=== PATIENT | male | born 1940 | race Caucasian/White ===

== ENCOUNTER 2019-02-01 06:00 | Outpatient (RCR) | payer OTHER, SELFPAY | END 2019-03-03 00:01 | LOC: MPT 06:00 | PROVIDERS: Family Provider Internal Medicine; Visit Provider Internal Medicine | DX: M54.5 Low back pain (principal) | CPT/HCPCS: 97110 ×4; 97140 ×3; 97116; 97530 ==

== ENCOUNTER 2019-03-04 06:00 | Outpatient (RCR) | payer OTHER, SELFPAY | END 2019-04-03 23:59 | disposition home or self-care (01) | LOC: MPO 06:00 | PROVIDERS: Family Provider Internal Medicine; PCP Internal Medicine; Visit Provider Internal Medicine | DX: M54.5 Low back pain (principal) | CPT/HCPCS: 97110; 97116; 97140; 97530 ==

== ENCOUNTER 2019-04-06 06:00 | Outpatient (RCR) | payer OTHER, SELFPAY | END 2019-05-02 23:59 | disposition home or self-care (01) | LOC: MPO 06:00 | PROVIDERS: Family Provider Internal Medicine; PCP Internal Medicine; Visit Provider Internal Medicine | DX: M54.5 Low back pain (principal) | CPT/HCPCS: 97110; 97140; 97530 ==

== ENCOUNTER 2019-05-03 06:00 | Outpatient (RCR) | payer OTHER, SELFPAY | END 2019-06-02 23:59 | disposition home or self-care (01) | LOC: MPO 06:00 | PROVIDERS: Family Provider Internal Medicine; PCP Internal Medicine; Visit Provider Internal Medicine | DX: M54.5 Low back pain (principal) | CPT/HCPCS: 97110; 97140 ==

== ENCOUNTER 2019-09-28 15:25 | Inpatient (IN) | payer OTHER, MEDICARE, SELFPAY ==
[2019-09-28] VITALS (44 sets, daily range): BP systolic 118–210; BP diastolic 55–122; PULSE 27–99; RESP 0–31; TEMP 36.8–36.9; O2SAT 88–98; BMI 30.1
--- NOTE | 2019-09-28 15:26 | XRR_ITS ---
PROCEDURE INFORMATION: Exam: XR Chest, 1 View Exam date and time: 09/28/2019 4:11 PM Age: 79 years old Clinical indication: Dyspnea TECHNIQUE: Imaging protocol: XR of the chest Views: 1 view. COMPARISON: No relevant prior studies available. FINDINGS: Lungs: No CHF. No consolidation. Pleural space: Unremarkable. No pleural effusion. No pneumothorax. Heart/Mediastinum: Unremarkable. No cardiomegaly. Vasculature: Tortuosity of the thoracic aorta. Bones/joints: No acute findings. Other findings: Minimally limited by overlying artifact. XR/XR chest 1V portable [id number] IMPRESSION: No acute findings.
--- NOTE | 2019-09-28 15:27 | ECG_ITS ---
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 Measurements Intervals [place] Rate: 28 P: [place]: -1 QRS: 263 QRSD: 165 T: 37 QT: 663 QTc: 453 Interpretive Statements Sinus rhythm with A-V dissociation, complete heart block, third-degree heart block, intraventricular conduction delay Electronically Signed On 09-29-2019 20:41:25 CDT by Bethel Park M.D. [id number]
--- NOTE | 2019-09-28 15:30 | ED_ITS ---
HPI - General Adult General: Chief complaint: Arrhythmia/Palpitations Stated complaint: Bradycardia Time Seen by Provider: 09/28/19 15:26 Source: patient and EMS Mode of arrival: EMS Limitations: no limitations History of Present Illness: HPI narrative: Mr. Harris is a nice 79-year-old male who comes in by EMS with report of bradycardia. [facility] was [facility] from the [place] but they noticed him to be bradycardic. Patient denies any chest pain, shortness of breath, lightheadedness, dizziness or fatigue. Patient does state that he gets short of breath when he ambulates at home. EMS notes a heart rate in the 20s and 30s but the patient has a stable blood pressure. The patient is alert, oriented and talking and has no complaints or concerns at this time. Associated symptoms: Reports dyspnea; Deny chest pain, headache(s), nausea, rash, palpitations, syncope or vomiting Review of Systems Const: Denies: fever(s) Eyes: Denies: change in vision ENMT: Denies: throat pain Card: Denies: chest pain, palpitations, syncope, pre-syncope or dyspnea on exertion Resp: Reports: dyspnea; Denies: productive cough or non-productive cough GI: Denies: abdominal pain, nausea, vomiting or diarrhea : Denies: flank pain, dysuria, urinary frequency or urinary urgency Musc: Denies: neck pain, back pain or extremity pain Skin/Breast: Denies: rash or pruritus Neuro: Denies: headache(s), numbness in extremities, weakness in extremities or dizziness Hemal/Lymph: Denies: easy bruising or easy bleeding All/Imm: Denies: urticaria COUNTS INCLUDE 234 BEDS AT THE [facility] ED PFSH: Medical History Hyperlipidemia Hypertension Physical Exam Const: COMMON NORMALS: no acute distress, patient oriented x3, no limitations, healthy appearing and well nourished GENERAL APPEARANCE: cooperative, well kempt and well developed HENMT: COMMON NORMALS: normocephalic, atraumatic, external ears normal, EAC's normal and Normal external nose present HEAD & SCALP: normal to inspection, normocephalic and atraumatic FACE & SINUS: normal facial exam and face symmetric NOSE: Normal external nose present and Normal nares present EXTERNAL EAR: Yes external ears normal EXTERNAL AUDITORY CANAL: EAC's normal MOUTH: Normal oral and palatal mucosa present, lip normal and tongue normal Eye: COMMON NORMALS: Equal, round and reactive pupils present and conjunctivae normal GENERAL EYE: appearance normal, both eyes and all related structures ALIGNMENT: Yes alignment normal PERIORBITAL: periorbital findings normal EYELID: eyelids normal CONJUNCTIVA: Yes conjunctivae normal SCLERA: sclerae normal PUPIL: Yes Equal, round and reactive pupils present Neck/C-Spine: COMMON NORMALS: full ROM, no lymphadenopathy, supple, no meningeal signs and no JVD GENERAL: Yes normal visual inspection and Yes trachea midline Chest: COMMONS NORMALS: normal inspection of the chest and normal palpation of entire chest wall Resp: COMMON NORMALS: normal respiratory effort, No retractions and No use of accessory muscles EFFORT & INSPECTION: Yes able to speak in complete sentences and Yes symmetric chest movement AUSCULTATION: no crackles, no rales, no rhonchi and no wheezes Cardio: COMMON NORMALS: no JVD, regular rhythm, S1 normal heart sound present and S2 normal heart sound present RATE: bradycardic RHYTHM: regular rhythm HEART SOUNDS: S1 normal heart sound present, S2 normal heart sound present, no click, no gallops, no murmurs, no rubs and abnormal split S2 GI: COMMON NORMALS: Soft to palpation and No hepatosplenomegaly present PALPATION: Yes Soft to palpation, No Tenderness to palpation present (GI), No Guarding due to palpation present (GI), No Rigid due to palpation, Yes No hepatosplenomegaly present, No Hernia present, No Palpable mass present and No Pulsatile mass present : COMMON NORMALS: Yes no CVA tenderness BLADDER/KIDNEY EXAM: Yes no CVA tenderness Back/Pelvis: COMMON NORMALS: no CVA tenderness, thoracic and lumbar spine normal to inspection, no thoracic nor lumbar tenderness and thoraco-lumbar ROM normal Extremity: COMMON NORMALS: normal to inspection, full ROM, capillary refill normal, no joint enlargement, no clubbing, cyanosis or edema and no calf tenderness Neuro: COMMON NORMALS: patient oriented x3, CN's II-XII intact bilaterally, moves all extremities, no focal motor deficits and no sensory deficits noted MENINGEAL SIGNS: Yes no meningeal signs SPEECH: speech normal Psych: COMMON NORMALS: mental status grossly normal, Normal thought process present, cooperative, normal affect, speech normal and activity/motor behavior normal APPEARANCE: Yes well kempt SPEECH: Yes normal speech THOUGHT PROCESS: Normal thought process present Skin: COMMON NORMALS: no rashes or lesions noted, turgor normal, no jaundice, no petechiae and no mottling GENERAL SKIN EXAM: no rashes or lesions noted and turgor normal Course ED course: 1544 -Case reviewed with Dr. Peres, he states he would like the patient's potassium but if normal he will take to the [facility] for temporary pacemaker. 1430 -[facility] here to take patient. Patient's vital signs still unchanged. Heart rate in the 20s to 30s with a stable blood pressure. The patient is mentating, talking has no chest pain or shortness of breath. Vital Signs: Vital signs: Vital Signs Temperature 98.4 F 09/28/19 15:26 Pulse Rate 29 L 09/28/19 16:50 Respiratory Rate 10 L 09/28/19 16:50 Blood Pressure 160/78 09/28/19 16:52 Pulse Oximetry 95 09/28/19 16:50 MDM - General Adult MDM Narrative: Medical decision making narrative: The case was reviewed with Dr. Peres he is here at this time take patient to [facility] the patient continues to be hemodynamically stable except for his bradycardia but his blood pressure is good and he is mentating without any dyspnea or discomfort. Lab Data: Attestation: I reviewed the patient's lab results. Labs: Lab Results 09/28/19 09/28/19 09/28/19 Range/Units 15:30 15:30 15:30 WBC 9.3 (4.0-10.0) 10^3/ uL RBC 5.54 H (4.1-5.3) 10^6/u L Hgb 16.4 (11.7-16.6) g/dL Hct 50.7 (42.0-52.0) % MCV 91.5 (80-94) fL MCH 29.6 (28.0-34.0) pg MCHC 32.3 (30.0-36.0) g/dL RDW 12.6 (12.1-15.1) % Plt Count 242 (130-400) 10^3/c mm MPV 11.6 H (7.4-10.4) fL Neut % (Auto) 64.0 % Lymph % (Auto) 26.0 % [place] % (Auto) 7.9 % Eos % (Auto) 1.3 % Baso % (Auto) 0.6 % Neut # (Auto) 5.94 (1.8-7.7) 10^3/u L Lymph # (Auto) 2.4 (0.8-4.8) 10^3/u L [place] # (Auto) 0.7 (0.2-0.9) 10^3/u L Eos # (Auto) 0.1 (0.0-0.8) 10^3/u L Baso # (Auto) 0.1 (0.0-0.1) 10^3/u L Nucleated RBC % (a uto) 0 % Nucleated RBCs # 0.0 /100WBC PT (10.5-13.3) SECO NDS INR (0.8-1.2) APTT (23.9-36.7) SECO NDS Sodium 139 (136-145) mmol/L Potassium 4.1 (3.5-5.1) mmol/L Chloride 105 (98-107) mmol/L Carbon Dioxide 20 L (22-29) mmol/L Anion Gap 18.1 (5-19) BUN 13 (8-23) mg/dL Creatinine 0.9 (0.7-1.2) mg/dL GFR Calculation Not Reportable Glucose 115 (65-115) mg/dL Calculated Osmolal ity 285 (285-295) mOsm/k g Calcium 9.9 (8.5-10.5) mg/dL Magnesium 2.1 (1.7-2.3) mg/dL Total Bilirubin 0.9 (0.15-1.2) mg/dL AST 18 (0-40) U/L ALT 10 (0-41) U/L Alkaline Phosphata se 57 (40-130) IU/L Creatine Kinase 59 (39-308) U/L Troponin T Baselin e 34 H (0-15) ng/L Total Protein 7.9 (6.6-8.7) g/dL Albumin 4.6 (3.5-5.2) g/dL Globulin 3.3 (1.3-4.6) g/dL TSH 4.35 H (0.27-4.20) uIU/ mL Free T4 1.30 (0.82-1.77) ng/d L Amorphous Sediment 09/28/19 09/28/19 Range/Units 15:30 16:35 WBC (4.0-10.0) 10^3/ uL RBC (4.1-5.3) 10^6/u L Hgb (11.7-16.6) g/dL Hct (42.0-52.0) % MCV (80-94) fL MCH (28.0-34.0) pg MCHC (30.0-36.0) g/dL RDW (12.1-15.1) % Plt Count (130-400) 10^3/c mm MPV (7.4-10.4) fL Neut % (Auto) % Lymph % (Auto) % [place] % (Auto) % Eos % (Auto) % Baso % (Auto) % Neut # (Auto) (1.8-7.7) 10^3/u L Lymph # (Auto) (0.8-4.8) 10^3/u L [place] # (Auto) (0.2-0.9) 10^3/u L Eos # (Auto) (0.0-0.8) 10^3/u L Baso # (Auto) (0.0-0.1) 10^3/u L Nucleated RBC % (a uto) % Nucleated RBCs # /100WBC PT 13.40 H (10.5-13.3) SECO NDS INR 0.99 (0.8-1.2) APTT 29.9 (23.9-36.7) SECO NDS Sodium (136-145) mmol/L Potassium (3.5-5.1) mmol/L Chloride (98-107) mmol/L Carbon Dioxide (22-29) mmol/L Anion Gap (5-19) BUN (8-23) mg/dL Creatinine (0.7-1.2) mg/dL GFR Calculation Glucose (65-115) mg/dL Calculated Osmolal ity (285-295) mOsm/k g Calcium (8.5-10.5) mg/dL Magnesium (1.7-2.3) mg/dL Total Bilirubin (0.15-1.2) mg/dL AST (0-40) U/L ALT (0-41) U/L Alkaline Phosphata se (40-130) IU/L Creatine Kinase (39-308) U/L Troponin T Baselin e (0-15) ng/L Total Protein (6.6-8.7) g/dL Albumin (3.5-5.2) g/dL Globulin (1.3-4.6) g/dL TSH (0.27-4.20) uIU/ mL Free T4 (0.82-1.77) ng/d L Amorphous Sediment Not Reportable Imaging Data^: CXR: My impression: No acute cardiopulmonary findings. EKG Data^: EKG 1: Attestation: I personally reviewed and interpreted this EKG as follows: EKG interpretation date: 09/28/19 EKG interpretation time: 15:54 Interpretation: 3 degree AV block with a ventricular 28 beats a minute. Computer generated interpretation: Chest X-Ray 09/28/19 15:26 IMPRESSION: No acute findings. Discharge Plan Discharge Patient Disposition: Admitted As Inpatient Clinical Impression: Third degree AV block Condition: Stable Coding Level of Care Code ED Legal Activity Adjudicator for Chg Fwd Exam Comprehensive
[2019-09-28 15:47] LABS: Basophils # 0.1 10^3/uL (0.0-0.1); Basophils % 0.6 %; Eosinophils # 0.1 10^3/uL (0.0-0.8); Eosinophils % 1.3 %; Hematocrit 50.7 % (42.0-52.0); Hemoglobin 16.4 g/dL (11.7-16.6); Lymphocytes # 2.4 10^3/uL (0.8-4.8); Mean Corpuscular HGB Conc 32.3 g/dL (30.0-36.0); Mean Corpuscular Hemoglobin 29.6 pg (28.0-34.0); Mean Corpuscular Volume 91.5 fL (80-94); Mean Platelet Volume 11.6 fL (7.4-10.4); Monocytes # 0.7 10^3/uL (0.2-0.9); Monocytes % 7.9 %; Neutrophils # 5.94 10^3/uL (1.8-7.7); Nucleated Red Blood Cells % 0 %; Platelet Count 242 10^3/cmm (130-400); Red Blood Count 5.54 10^6/uL (4.1-5.3); Red Cell Distribution Width 12.6 % (12.1-15.1); White Blood Count 9.3 10^3/uL (4.0-10.0)
[2019-09-28 16:05] LABS: Troponin(5th) Baseline 34 ng/L (0-15)
[2019-09-28 16:15] LABS: Alanine Aminotransferase 10 U/L (0-41); Albumin Level 4.6 g/dL (3.5-5.2); Alkaline Phosphatase 57 IU/L (40-130); Anion Gap 18.1 (5-19); Aspartate Amino Transferase 18 U/L (0-40); Blood Urea Nitrogen 13 mg/dL (8-23); Calcium 9.9 mg/dL (8.5-10.5); Carbon Dioxide 20 mmol/L (22-29); Chloride 105 mmol/L (98-107); Creatine Phosphokinase 59 U/L (39-308); Globulin 3.3 g/dL (1.3-4.6); Glucose 115 mg/dL (65-115); Magnesium 2.1 mg/dL (1.7-2.3); Osmolality Calculated 285 mOsm/kg (285-295); Potassium 4.1 mmol/L (3.5-5.1); Sodium 139 mmol/L (136-145); Thyroid Stimulating Hormone 4.35 uIU/mL (0.27-4.20); Total Bilirubin 0.9 mg/dL (0.15-1.2); Total Protein 7.9 g/dL (6.6-8.7)
[2019-09-28 16:22] LABS: INR 0.99 (0.8-1.2)
[2019-09-28 16:23] LABS: Partial Thromboplastin Time 29.9 SECONDS (23.9-36.7)
[2019-09-28 16:58] LABS: Bilirubin Urine Neg (NEGATIVE); Blood Urine Neg (Negative); Glucose Urine UA Norm (Normal); Ketones Urine Negative (Negative); Leukocyte Esterase Urine Negative (Negative); Nitrate Urine Negative (Negative); Protein Urine Neg (Negative); Specific Gravity, Urine 1.025 (1.005-1.030); Urine Appearance Clear (CLEAR); Urine Color Yellow (Yellow); Urobilinogen Urine Norm (Negative); pH Urine 5 (5-7)
[2019-09-28 16:59] LABS: Add Urine Culture? No; Bacteria Urine TRACE; Hyaline Casts Urine 0-4; Squamous Epithelial Cell Urine 0-4 (0-5)
--- NOTE | 2019-09-28 17:04 | W.PM.OPSUD ---
Surgery/Procedure H&P Update DATE OF PROCEDURE: September 28, 2019 DATE H&P PERFORMED: 09/28/19 H&P UPDATE INFORMATION: I have examined patient prior to procedure PREOP DIAGNOSIS: Complete heart block/third-degree PLANNED PROCEDURE: Temporary pacemaker PATIENT REASSESSED PRIOR TO SEDATION, WITH NO CHANGE NOTED: Yes PHYSICAL EXAM: alert, oriented x 3, clear to auscultation bilaterally and regular rate & rhythm AIRWAY EVAL/ANESTHESIA PLAN: ASA II
--- NOTE | 2019-09-28 17:05 | P.HP_ITS ---
Providers/Chief Complaint Primary Care Provider: Oscar Miramontes Chief Complaint: Bradycardia History of Present Illness Wilmer Harris is a 79 year old male past medical history significant for hyperlipidemia hypertension for the past couple of weeks but feeling fatigue very short of breath with lack of energy and had occasion presyncopal did not seek any attention. Today his son-in-law brought him to the emergency room as he was not able to move around, he was noted to be in complete heart block by EKG and heart rate of 30s. His blood pressure was 200 x 100 which later improved to 180 x 90. BMP did not show any significant derangement of the electrolytes he denies being on henry blockers. He denies history of chest pain. He denies history of tick bite joint problem or prior history of heart problem. Since his heart rate continues to be in persistent 20s to 30s we will take him to the [facility] for temporary pacemaker Medications/Allergies Home Medications Medication Instructions Recorded Confirmed Last Taken Type aspirin 325 mg PO DAILY 09/28/19 09/28/19 09/27/19 History lisinopril 20 mg PO BID 09/28/19 09/28/19 09/28/19 History pravastatin 40 mg PO QPM 09/28/19 09/28/19 09/27/19 History Allergies Allergy/AdvReac Type Severity Reaction Status Date / Time diphenhydramine Allergy ALGY-Swell Verified 09/28/19 15:52 Lip/Tongue/Throat PFSH Acute PFSH: Medical History Hyperlipidemia Hypertension Vitals/I&O/Wt Last Vital Signs Temp 98.4 F 09/28/19 15:26 Pulse 29 L 09/28/19 16:50 Resp 10 L 09/28/19 16:50 BP 160/78 09/28/19 16:52 Pulse Ox 95 09/28/19 16:50 Weight last 48 hrs Weight 222 lb Physical Exam Narrative: EXAM NARRATIVE: GENERAL: Patient is alert, awake and oriented x3. NECK: No jugular vein distension. HEENT: No cyanosis. No icterus. No pallor. HEART: Regularly irregular S1 and S2. No murmur, rub or gallop. LUNGS: Clear to auscultate bilaterally. ABDOMEN: Soft, nontender and nondistended. Positive bowel sounds. No guarding, rebound or tenderness. CENTRAL NERVOUS SYSTEM: Grossly nonfocal. EXTREMITIES: Lower extremities without edema bilaterally. Data : 09/28/19 15:30 09/28/19 15:30 A&P Assessment and plan (1) Third degree AV block: Patient presented with complete third-degree heart block with A-V dissociation. His heart rate in 20s he is mentating fine and stable hemodynami linda I will proceed with urgent temporary pacemaker placement. He will be ruled out for any reversible cause overnight. Most likely he will be requiring permanent pacemaker placement. I will consult Dr. Bowden from CT surgery tomorrow. Patient has been explained all risk benefit and alternative for the procedure and he would like to proceed with it. Status: Acute (2) Hyperlipidemia: Continue statin Status: Acute Qualifiers: Hyperlipidemia type: unspecified Qualified Code(s): E78.5 - Hyperlipidemia, unspecified (3) Hypertension: Moderately elevated I will optimize his medicine. Status: Acute Qualifiers: Hypertension type: essential hypertension Qualified Code(s): I10 - Essential (primary) hypertension Attestations Medical Necessity Statement*: I am expecting his stay to cross more than 2 midnights Coding Level of Care Code New Pt Acute Women'S Studies Lecturer for Chg Fwd Patient Type New History Detailed Exam Expanded Problem Focused Medical Decision Making Moderate Complexity Diagnoses Third degree AV block I44.2 Hyperlipidemia E78.5 Hyperlipidemia type: unspecified Hypertension I10 Hypertension type: essential hypertension
--- NOTE | 2019-09-28 17:27 | ECG_ITS ---
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 Measurements Intervals [place] Rate: 52 P: [place]: -1 QRS: 33 QRSD: 170 T: 245 QT: 472 QTc: 441 Interpretive Statements ELECTRONIC VENTRICULAR PACEMAKER ABNORMAL RHYTHM ECG Compared to ECG 09/28/2019 15:54:35 Idioventricular rhythm no longer present Prolonged QT interval no longer present Electronically Signed On 09-28-2019 21:36:18 CDT by Clover Borrego M.D. [id number]
--- NOTE | 2019-09-28 18:17 | P.CONIM_ITS ---
Providers/Reason For Consult Consulting Physican/Specialty*: Dr. Bowden, cardiothoracic surgery Reason for Consult*: Third-degree heart block, will require permanent pacemaker implantation Requesting Physcian: Dr. Park Attending Physician: Bethel Park MD Primary Care Provider: Oscar Miramontes History of Present Illness History of Present Illness Wilmer Harris is a 79 year old male who is just arrived to the ICU having a temporary pacemaker placed through the neck by Dr. Park after initially presenting in third-degree heart block. He gives a history of increasing fatigue and shortness of breath for the past couple of weeks. Upon arrival to the ER, he was found to be in third-degree block with a heart rate of mid 30s. No precipitating factors could be elucidated by Dr. Park or the ER staff. Initial serum chemistries were unremarkable. He does have a history of hypertension and was hypertensive upon arrival. Dr. Park expeditiously placed a temporary pacemaker through the neck with excellent capture. Currently, he is resting comfortably in the ICU without discomfort. No shortness of breath or chest pain. Dr. Park is requested that a permanent pacemaker be implanted. Chest x-ray from our today was clear without cardiomegaly, infiltrate, or effusion. Review of Systems Const: Denies: fever(s), chills, change in appetite, change in weight, fatigue or night sweats Eyes: Denies: change in vision or blurry vision ENMT: Denies: odynophagia or hoarseness Card: Reports: palpitations, pre-syncope and dyspnea on exertion; Denies: chest pain Resp: Reports: dyspnea; Denies: hemoptysis GI: Denies: abdominal pain, nausea, vomiting, dysphagia, heartburn or change in bowel habits : Denies: difficulty urinating, dysuria, urinary frequency, urinary urgency or urinary hesitancy Musc: Denies: extremity pain or extremity swelling Skin/Breast: Denies: rash Neuro: Denies: headache(s), numbness in extremities, weakness in extremities or sensory changes Psych: Denies: anxiety, depression or change in appetite Endo: Denies: polyuria, polydipsia or cold intolerance Hemal/Lymph: Denies: easy bruising, easy bleeding, petechiae or enlarged lymph nodes Meds/Allergies Home Medications and Allergies Home Medications Medication Instructions Recorded Confirmed Last Taken Type aspirin 325 mg PO DAILY 09/28/19 09/28/19 09/27/19 History lisinopril 20 mg PO BID 09/28/19 09/28/19 09/28/19 History pravastatin 40 mg PO QPM 09/28/19 09/28/19 09/27/19 History Allergies Allergy/AdvReac Type Severity Reaction Status Date / Time diphenhydramine Allergy ALGY-Swell Verified 09/28/19 15:52 Lip/Tongue/Throat Current Medications Current Medications Generic Name Dose Route Start Last Admin Trade Name Freq PRN Reason Stop Dose Admin Sodium Chloride 1,000 mls @ 100 mls/hr 09/28/19 15:30 09/28/19 17:03 Sodium Chloride 0.9% IV Not Given .Q10H AUBRIE PFSH Acute PFSH: Medical History Hyperlipidemia Hypertension Vitals/I&O/Wt Last Vital Signs Temp 98.4 F 09/28/19 15:26 Pulse 54 L 09/28/19 18:15 Resp 10 L 09/28/19 16:50 BP 160/78 09/28/19 16:52 Pulse Ox 93 09/28/19 18:15 Weight last 48 hrs Weight 222 lb Physical Exam Const: COMMON NORMALS: patient oriented x3 Neck/C-Spine: GENERAL: Yes normal visual inspection and Yes trachea midline OTHER: There is a large bandage on the right neck and right anterior chest wall which is securing the temporary pacemaker. Chest: COMMONS NORMALS: normal inspection of the chest CHEST: Yes Symmetrical chest wall rise OTHER: No crepitance Resp: COMMON NORMALS: normal respiratory effort, No retractions and clear to auscultation bilaterally EFFORT & INSPECTION: Yes able to speak in complete sentences, Yes symmetric chest movement and No tachypneic AUSCULTATION: clear to auscultation bilaterally Cardio: COMMON NORMALS: regular rate, No gallops present (Cardio), No murmurs present (Cardio) and No rub (Cardio); negative for regular rhythm (Ventricularly paced rhythm) JUGULAR VENOUS DISTENTION: no JVD PALPATION: normal PMI RATE: regular rate RHYTHM: abnormal rhythm (Ventricularly paced rhythm) Extremity: COMMON NORMALS: no clubbing, cyanosis or edema and no pedal edema Neuro: COMMON NORMALS: patient oriented x3, moves all extremities, no focal motor deficits and no sensory deficits noted GAIT: Yes Unable to assess gait A&P Assessment and plan (1) Third degree AV block: Pleasant 79-year-old gentleman presenting with third-degree heart block, now ventricularly paced with a temporary pacemaker placed by Dr. Park. Plan: I have conferred personally with Dr. Park. We will tentatively plan for dual-chamber pacemaker implantation as first case Saturday, September 29 prior to schedule other electrophysiology cases. If there is any concern as to functioning of the temporary pacemaker or other difficulties, I am available at any time to place this permanent pacemaker at an earlier time, as directed by Dr. Park. I have discussed my recommendation with Mr. Harris. He is in agreement. Details and risk of surgery were carefully and frankly discussed including potential for lead migration, major bleeding, pneumothorax requiring chest tube, need for long-term follow-up, infection requiring removal of the device or leads, and other potential diagnostic and therapeutic procedures. Status: Acute Consult Attestations Medical Necessity Statement: Third-degree heart block, currently requiring temporary pacemaker with subsequent permanent pacemaker requirement. Time Spent in Patient Care: Greater than 35 minutes Coding Level of Care Code Acute Supervisor Tower for [facility] Valerie Diagnoses Third degree AV block I44.2
[2019-09-28] MEDS: lisinopril 20 mg Tablet PO (20:17)
[2019-09-28] MEDS: atorvastatin 40 mg Tablet 20 MG PO (20:17)
--- NOTE | 2019-09-28 21:27 | ECG_ITS ---
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 Measurements Intervals [place] Rate: 80 P: [place]: -1 QRS: -22 QRSD: 218 T: 173 QT: 503 QTc: 583 Interpretive Statements ELECTRONIC VENTRICULAR PACEMAKER with isolated PVCs Compared to ECG 09/28/2019 18:04:43 No significant changes Electronically Signed On 09-29-2019 12:34:00 CDT by Clover Borrego M.D. [id number]
[2019-09-29] VITALS (29 sets, daily range): BP systolic 120–191; BP diastolic 63–166; PULSE 75–98; RESP 4–26; O2SAT 89–100
[2019-09-29] MEDS: sodium chloride 0.9% 1,000 ML 100 ML IV ×2 (03:42→13:03)
[2019-09-29 04:17] LABS: Basophils # 0.1 10^3/uL (0.0-0.1); Basophils % 0.6 %; Eosinophils # 0.2 10^3/uL (0.0-0.8); Eosinophils % 1.8 %; Hematocrit 46.8 % (42.0-52.0); Hemoglobin 15.1 g/dL (11.7-16.6); Lymphocytes % 24.1 %; Mean Corpuscular HGB Conc 32.3 g/dL (30.0-36.0); Mean Corpuscular Hemoglobin 30.1 pg (28.0-34.0); Mean Corpuscular Volume 93.4 fL (80-94); Mean Platelet Volume 11.4 fL (7.4-10.4); Monocytes # 0.8 10^3/uL (0.2-0.9); Monocytes % 9.1 %; Neutrophils # 5.41 10^3/uL (1.8-7.7); Nucleated Red Blood Cells % 0 %; Platelet Count 195 10^3/cmm (130-400); Red Blood Count 5.01 10^6/uL (4.1-5.3); Red Cell Distribution Width 12.6 % (12.1-15.1); White Blood Count 8.5 10^3/uL (4.0-10.0)
[2019-09-29 05:06] LABS: Alanine Aminotransferase 12 U/L (0-41); Alkaline Phosphatase 51 IU/L (40-130); Aspartate Amino Transferase 19 U/L (0-40); Blood Urea Nitrogen 12 mg/dL (8-23); Calcium 8.7 mg/dL (8.5-10.5); Carbon Dioxide 21 mmol/L (22-29); Chloride 106 mmol/L (98-107); Globulin 2.6 g/dL (1.3-4.6); Glucose 90 mg/dL (65-115); Osmolality Calculated 284 mOsm/kg (285-295); Sodium 139 mmol/L (136-145); Total Bilirubin 1.3 mg/dL (0.15-1.2); Total Protein 6.6 g/dL (6.6-8.7)
--- NOTE | 2019-09-29 07:13 | P.PN_ITS ---
Subjective Subjective: Interval history: Sleeping on rounds this morning. Looks like he is only requiring the temporary pacer intermittently. Nurses report no concerns overnight. Vitals/I&O/Wt Last Vital Signs Temp 98.3 F 09/28/19 19:24 Pulse 81 09/29/19 06:00 Resp 17 09/29/19 06:00 BP 130/81 09/29/19 06:00 Pulse Ox 95 09/29/19 06:00 09/28/19 09/29/19 09/29/19 22:59 06:59 14:59 Intake Total 480 / 480 Output Total 500 / 500 Balance 480 / 480 -500 / -20 Weight last 48 hrs Weight 222 lb Physical Exam Resp: COMMON NORMALS: normal respiratory effort and clear to auscultation bilaterally AUSCULTATION: clear to auscultation bilaterally Cardio: COMMON NORMALS: S1 normal heart sound present and No gallops present (Cardio) RHYTHM: abnormal rhythm HEART SOUNDS: S1 normal heart sound present Data : 09/29/19 03:50 09/29/19 03:50 A&P Assessment and plan (1) Third degree AV block: Third-degree heart block requiring temporary pacemaker placement by Dr. Park yesterday. Currently requiring the pacemaker intermittently. Plan: We tentatively scheduled for dual-chamber pacemaker implantation the morning. I discussed the rationale for this carefully with Miguel Kimberly yesterday. He is in agreement. He appears comfortable on rounds this morning. Status: Acute Attestations Medical Necessity Statement*: Third-degree AV block requiring temporary pacing Time Spent in Patient Care: less than 15 minutes Coding Level of Care Code Acute Utilization Specialist for [employer] Diagnoses Third degree AV block I44.2
[2019-09-29] MEDS: lisinopril 20 mg Tablet PO ×2 (08:20→16:59)
[2019-09-29] MEDS: aspirin 325 mg Tablet PO (08:20)
--- NOTE | 2019-09-29 11:58 | PC.NURSE ---
PACEMAKER PLACEMENT Patient is planned to go for permanent pacemaker in the morning, 09/29. Dr. Bowden is consulted and stated that he would be the first case of the day. Patient has been pacing in the 80s today. Patient denies any shortness of breath. Oxygen saturation has been 96% on 3L NC.
[2019-09-29] MEDS: mupirocin oint 22 gm 1 APPLIC NASAL (16:42)
[2019-09-29] MEDS: chlorhexidine gluconate 4% Btl 118 mL 1 APPLIC TOPICAL (16:43)
[2019-09-29] MEDS: atorvastatin 40 mg Tablet 20 MG PO (16:59)
[2019-09-29] MEDS: amlodipine 5 mg Tablet PO (17:47)
--- NOTE | 2019-09-29 18:17 | PM.PN ---
Subjective Subjective: Interval history: Status post temporary pacemaker 100% paced with heart rate of 70s. He is feeling already much better Vitals/I&O/Wt Last Vital Signs Temp 98.3 F 09/28/19 19:24 Pulse 81 09/29/19 18:00 Resp 15 09/29/19 18:00 BP 121/97 09/29/19 18:00 Pulse Ox 94 09/29/19 18:00 09/29/19 09/29/19 09/29/19 06:59 14:59 22:59 Intake Total 1535 / 1535 Output Total 500 / 500 550 / 550 850 / 1400 Balance -500 / -20 985 / 985 -850 / 135 Weight last 48 hrs Weight 222 lb Physical Exam Narrative: EXAM NARRATIVE: GENERAL: Patient is alert, awake and oriented x3. NECK: No jugular vein distension. HEENT: No cyanosis. No icterus. No pallor. HEART: Regularly irregular S1 and S2. No murmur, rub or gallop. LUNGS: Clear to auscultate bilaterally. ABDOMEN: Soft, nontender and nondistended. Positive bowel sounds. No guarding, rebound or tenderness. CENTRAL NERVOUS SYSTEM: Grossly nonfocal. EXTREMITIES: Lower extremities without edema bilaterally. 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 Bowden saw the patient in consultation at our request. Patient will be undergoing permanent pacemaker implant tomorrow morning. Until then continue to monitor in the ICU with temporary pacer. Status: Acute (2) Hypertension: Continue home medicine lisinopril. We will titrate up to keep blood pressure below 120/80 Status: Acute Qualifiers: Hypertension type: essential hypertension Qualified Code(s): I10 - Essential (primary) hypertension Attestations Medical Necessity Statement*: Require continuation hospitalization for above defined care. Coding Level of Care Code Established Pt Acute Cook Helper Juice for [facility] Fwd Patient Type Established History Expanded Problem Focused Exam Expanded Problem Focused Medical Decision Making Moderate Complexity Diagnoses Third degree AV block I44.2 Hypertension I10 Hypertension type: essential hypertension
--- NOTE | 2019-09-29 18:41 | PC.NURSE ---
SHIFT SUMMARY Patient has had uneventful shift. Patient has continued to pace in the 80s throughout the shift. 1,400 mL urine output this shift. Patient still remains on 3L NC. Dr. Park saw patient and added amlodipine 5 mg PO once daily for blood pressure, and also instructed to decrease IV fluids to KVO. Patient BP has continued to maintain 150s/70s this shift. Patient is still scheduled to go to surgery with Dr. Bowden for permanent pacemaker first thing in the morning. Patient torso was washed with first application of betasept around 1700. Patient has no complaints at this time.
[2019-09-30] VITALS (19 sets, daily range): BP systolic 96–148; BP diastolic 62–96; PULSE 71–99; RESP 13–25; O2SAT 91–98
--- NOTE | 2019-09-30 | SCC_ITS ---
Procedure Done: Dual-chamber pacemaker implantation 203.1 seconds of fluoroscopic guidance, for a cumulative dose of 75.92 mGy, was provided to Dr. Burch by the radiology department. C-arm images of the chest were saved for the patient's permanent record. DEMETRI
--- NOTE | 2019-09-30 06:28 | P.PN_ITS ---
Subjective Subjective: Interval history: Rested well last night. Sleeping on rounds. Aroused easily. Eager to proceed with pacemaker implantation. Vitals/I&O/Wt Last Vital Signs Temp 98.3 F 09/28/19 19:24 Pulse 81 09/30/19 06:00 Resp 19 H 09/30/19 06:00 BP 148/94 09/30/19 06:00 Pulse Ox 93 09/30/19 06:00 09/29/19 09/29/19 09/30/19 14:59 22:59 06:59 Intake Total 1535 / 1535 240 / 1775 Output Total 550 / 550 1000 / 1550 750 / 2300 Balance 985 / 985 -760 / 225 -750 / -525 Weight last 48 hrs Weight 222 lb Physical Exam Chest: COMMONS NORMALS: normal inspection of the chest (Temporary pacemaker still secured and in place) Resp: COMMON NORMALS: normal respiratory effort and clear to auscultation bilaterally EFFORT & INSPECTION: Yes able to speak in complete sentences AUSCULTATION: clear to auscultation bilaterally Cardio: COMMON NORMALS: regular rhythm (Occasional paced beats) RHYTHM: regular rhythm (Occasional paced beats) Extremity: COMMON NORMALS: no clubbing, cyanosis or edema Data : 09/29/19 03:50 09/29/19 03:50 A&P Assessment and plan (1) Third degree AV block: Third-degree heart block, currently requiring temporary pacemaker inter mittently. Plan: We will plan for dual-chamber pacemaker implantation this morning. Details risk procedure carefully and frankly discussed again. Mr. Harris is eager to proceed. Status: Acute Attestations Medical Necessity Statement*: Third-degree heart block requiring temporary pacemaker Time Spent in Patient Care: less than 15 minutes Coding Level of Care Code Acute Roving Department End Finder for [facility] Fwd Diagnoses Third degree AV block I44.2
--- NOTE | 2019-09-30 06:55 | ANES.PREANE2 ---
Pre-Anesthetic Assessment Pre-Anesthetic Assessment: Height/Weight: Height 1.83 m Weight 100.698 kg Temp Pulse Resp BP Pulse Ox 98.3 F 81 19 H 148/94 93 09/28/19 19:24 09/30/19 06:00 09/30/19 06:00 09/30/19 06:00 09/30/19 06:00 Preop Diagnosis: Complete heart block/third-degree Proposed Procedure: Operation Date: 09/29/19 16:30 Proposed Procedures p Temporary Pacemaker Placement(Not Applicable) - Bethel Park MD Operation Date: 09/30/19 07:00 Proposed Procedures p Pacemaker Insertion(Not Applicable) - Donal Bowden MD Social: Social History: Alcohol (occ) and No tobacco Exam: Pre-Anes Outpt Exam: alert, oriented x 3, clear to auscultation bilaterally and regular rate & rhythm Airway: Submandibular: WNL Cervical ROM: WNL MP: 2 Dentition: Other (very poor, 4 teeth on the bottom) History/ROS: No significant history except as noted Pulmonary: Pulmonary: MOLINA CV/HEM: CV/HEM: Arrythmia and HTN : : None reported Hepatic: Hepatic: None reported GI: GI: None reported Metabolic: Metabolic: Hyperlipidemia Musc/skel: Musc/skel: OA/DJD Neuropsych: Neuropsych: None reported Anesthetic Plan: ASA status: 4 Anesthesia: Anesthesia Evaluation and MAC Risk of > 500 ml blood loss (7ml/kg in children): No Meds/Allergies Current Medications: Current Medications Generic Name Dose Route Start Last Admin Trade Name Freq PRN Reason Stop Dose Admin Amlodipine Besylat e 5 mg 09/29/19 18:00 09/29/19 17:47 Norvasc PO 5 mg DAILY AUBRIE Administration Aspirin 325 mg 09/29/19 09:00 09/29/19 08:20 Aspirin PO 325 mg DAILY AUBRIE Administration Atorvastatin Calci um 20 mg 09/28/19 18:00 09/29/19 16:59 Lipitor PO 20 mg QPM AUBRIE Administration Chlorhexidine Gluc khris 1 applic 09/29/19 18:00 09/29/19 16:43 Betasept TOPICAL 1 applic BID AUBRIE Administration Sodium Chloride 1,000 mls @ 30 ml s/hr 09/28/19 15:30 09/29/19 13:03 Sodium Chloride 0.9% IV 100 mls/hr .Q24H AUBRIE Administration Lisinopril 20 mg 09/28/19 18:00 09/29/19 16:59 Prinivil PO 20 mg BID AUBRIE Administration Mupirocin 1 applic 09/29/19 09:00 09/29/19 16:42 Bactroban NASAL 1 applic BID AUBRIE Administration PFSH Anesthesia PFSH: Medical History Hyperlipidemia Hypertension Data Anesthesia CBC & Chem 7: 09/29/19 03:50 09/29/19 03:50 Other Labs: Laboratory Results - last 48 hr 09/28/19 09/28/19 09/28/19 15:30 15:30 15:30 WBC 9.3 RBC 5.54 H Hgb 16.4 Hct 50.7 MCV 91.5 MCH 29.6 MCHC 32.3 RDW 12.6 Plt Count 242 MPV 11.6 H Neut % (Auto) 64.0 Lymph % (Auto) 26.0 Randolph % (Auto) 7.9 Eos % (Auto) 1.3 Baso % (Auto) 0.6 Neut # (Auto) 5.94 Lymph # (Auto) 2.4 Randolph # (Auto) 0.7 Eos # (Auto) 0.1 Baso # (Auto) 0.1 Nucleated RBC % (auto) 0 Nucleated RBCs # 0.0 PT INR APTT Sodium 139 Potassium 4.1 Chloride 105 Carbon Dioxide 20 L Anion Gap 18.1 BUN 13 Creatinine 0.9 GFR Calculation Not Reportable Glucose 115 Calculated Osmolality 285 Calcium 9.9 Magnesium 2.1 Total Bilirubin 0.9 AST 18 ALT 10 Alkaline Phosphatase 57 Creatine Kinase 59 Troponin T Baseline 34 H Total Protein 7.9 Albumin 4.6 Globulin 3.3 TSH 4.35 H Free T4 1.30 Urine Color Urine Appearance Urine pH Ur Specific Spencer Urine Protein Urine Glucose (UA) Urine Ketones Urine Blood Urine Nitrate Urine Bilirubin Urine Urobilinogen Ur Leukocyte Esterase Urine RBC Urine WBC Ur Squamous Epith Cells Amorphous Sediment Urine Bacteria Hyaline Casts 09/28/19 09/28/19 09/29/19 15:30 16:35 03:50 WBC 8.5 RBC 5.01 Hgb 15.1 Hct 46.8 MCV 93.4 MCH 30.1 MCHC 32.3 RDW 12.6 Plt Count 195 MPV 11.4 H Neut % (Auto) 64.0 Lymph % (Auto) 24.1 Randolph % (Auto) 9.1 Eos % (Auto) 1.8 Baso % (Auto) 0.6 Neut # (Auto) 5.41 Lymph # (Auto) 2.0 Randolph # (Auto) 0.8 Eos # (Auto) 0.2 Baso # (Auto) 0.1 Nucleated RBC % (auto) 0 Nucleated RBCs # 0.0 PT 13.40 H INR 0.99 APTT 29.9 Sodium Potassium Chloride Carbon Dioxide Anion Gap BUN Creatinine GFR Calculation Glucose Calculated Osmolality Calcium Magnesium Total Bilirubin AST ALT Alkaline Phosphatase Creatine Kinase Troponin T Baseline Total Protein Albumin Globulin TSH Free T4 Urine Color Yellow Urine Appearance Clear Urine pH 5 Ur Specific Spencer 1.025 Urine Protein Neg Urine Glucose (UA) Norm Urine Ketones Negative Urine Blood Neg Urine Nitrate Negative Urine Bilirubin Neg Urine Urobilinogen Norm Ur Leukocyte Esterase Negative Urine RBC None Urine WBC None Ur Squamous Epith Cells 0-4 H Amorphous Sediment Not Reportable Urine Bacteria Trace Hyaline Casts 0-4 H 09/29/19 03:50 WBC RBC Hgb Hct MCV MCH MCHC RDW Plt Count MPV Neut % (Auto) Lymph % (Auto) Randolph % (Auto) Eos % (Auto) Baso % (Auto) Neut # (Auto) Lymph # (Auto) Randolph # (Auto) Eos # (Auto) Baso # (Auto) Nucleated RBC % (auto) Nucleated RBCs # PT INR APTT Sodium 139 Potassium 4.0 Chloride 106 Carbon Dioxide 21 L Anion Gap 16.0 BUN 12 Creatinine 0.8 GFR Calculation Not Reportable Glucose 90 Calculated Osmolality 284 L Calcium 8.7 Magnesium Total Bilirubin 1.3 H AST 19 ALT 12 Alkaline Phosphatase 51 Creatine Kinase Troponin T Baseline Total Protein 6.6 Albumin 4.0 Globulin 2.6 TSH Free T4 Urine Color Urine Appearance Urine pH Ur Specific Spencer Urine Protein Urine Glucose (UA) Urine Ketones Urine Blood Urine Nitrate Urine Bilirubin Urine Urobilinogen Ur Leukocyte Esterase Urine RBC Urine WBC Ur Squamous Epith Cells Amorphous Sediment Urine Bacteria Hyaline Casts Cardiac Studies: No Data to Display
--- NOTE | 2019-09-30 07:38 | SC_ITS ---
WS: [id number] INTRAOPERATIVE TECHNIQUE: 2 Spot fluoroscopic images for intraoperative purposes. FLUOROSCOPY TIME: 203.1 seconds CLINICAL INFORMATION: pacemaker insertion COMPARISON: None. FINDINGS: Intraoperative images for cardiac pacer placement. No visualized pneumothorax. Lungs incompletely vis ualized. SC/C-arm FL for Pacemaker IMPRESSION: Images obtained for intraoperative purposes.
[2019-09-30] MEDS: ceFAZolin 1,000 mg SDV 1000 MG IRRIGATION (07:46)
[2019-09-30] MEDS: lidocaine 1% INJ 20 mL INJECTION (07:53)
--- NOTE | 2019-09-30 09:18 | PM.OP ---
Operative Report Date of procedure: September 30, 2019 Pre-op Diagnosis: Complete heart block/third-degree Post-op diagnosis: same Post-op Findings: Same Procedure Done: Dual-chamber pacemaker implantation Implants: Medtronic atrial and ventricular pacing leads and generator Pathology: none sent Surgeon: Donal Bowden Anesthesia: MAC and Other (15 cc of 1% lidocaine infiltrated locally) Complications: None: Post procedure chest x-ray pending Condition: stable Disposition: ICU Brief History: Mr. Delaney is a 79-year-old gentleman who presented to the emergency department 2 days ago with profound bradycardia with a heart rate in the upper 20s to low 30s and was found to have complete AV heart block. He had a 2-week history of progressive shortness of breath. Temporary pacing lead was placed by Dr. Park. I was consulted for dual-chamber pacemaker implantation. Recommendation was carefully discussed with Mr. Harris. Details of the risk of the procedure were also reviewed. Proper consents have been reviewed and signed. Procedure: Procedure: Mr. Harris was taken to the OR suite and placed in the supine position over a shoulder roll. Appropriate timeout was completed. He received conscious sedation with continuous anesthesia monitoring by. His entire chest was sterilely prepped and draped. 1% lidocaine was infiltrated in the left subclavicular region. While in Trendelenburg position, utilizing modified seldinger technique, 2 guidewires were placed in the left subclavian vein. This was confirmed in position by fluoroscopy. Next, after infiltration with lidocaine, a subcutaneous pocket was created beginning from the exit point of the guidewire and extending laterally and inferiorly. Cautery was utilized to create the pocket just above the pectoralis musculature. Hemostasis was confirmed. An antibiotic-soaked sponge was placed in the wound. A dilator and tear-away sheath was placed over the first guidewire and advanced under fluoroscopy. Guidewire and dilator were removed. Next using a combination of curved and straight stylettes, the right ventricular lead was placed in position by fluoroscopy. The distal screw was extended. Interrogation was then performed confirming appropriate parameters. The tear-away sheath was then removed and the ventricular lead was sewn to the floor of the subcutaneous pocket. In a similar fashion dilator and tear-away sheath was placed over the 2nd guide wire and advanced under fluoroscopy. Guidewire and dilator were removed. Straight and curved stylettes were used to position the right atrial lead with fluoroscopy. Distal screw was extended. Interrogation was then performed. Tear-away sheath was then removed. Atrial lead was secured to the floor of the subcutaneous pocket. Next, under fluoroscopic observation, the temporary pacing wire was removed without disruption of the permanent leads. Pocket was irrigated with antibiotic solution and hemostasis again confirmed. Pacing generator was brought into the field, and after confirmation of hemostasis in the subcutaneous pocket, the leads were connected to the generator with appropriate capture. The entire system was interrogated by fluoroscopy. Leads and generator were secured in the pocket. Sponge and needle count was correct. The wound was then closed in 2 layers of 3-0 Vicryl suture. Skin was reapproximated in a subcuticular manner with 4-0 Monocryl suture. A pressure dressing was applied. The left arm was placed in a sling. He had equal breath sounds bilaterally. He was then returned to the ICU, where chest x-ray is currently pending. I did elementary school counselor with the family at the completion of the procedure. Following are the specifics of this system: Right ventricular lead is 58 cm and model 5076. Serial number [id number] Right atrial lead is 52 cm and is model 5076. Serial number [id number]. Ventricular lead had sensing of 8.0 mV with an impedance of 722 ohms. Threshold was 0.5 V Atrial lead had sensing of 4.1 mV with an impedance of 494 ohms. Threshold was 0.5 V. Invisible Puppy generator: Model # [id number] Serial #[id number]
--- NOTE | 2019-09-30 09:22 | XRR_ITS ---
PROCEDURE INFORMATION: Exam: XR Chest, 1 View Exam date and time: 09/30/2019 9:22 AM Age: 79 years old Clinical indication: Device placement; Cardiac pacemaker placement or adjustment; Prior surgery; Surgery date: Post-operative (0-2 days); Patient HX: Post pacemaker placement today; Additional info: Status post pacemaker implantation TECHNIQUE: Imaging protocol: XR of the chest Views: Frontal portable upright view of the chest. COMPARISON: CR XR chest 1V portable [id number] 09/28/2019 4:00 PM FINDINGS: Tubes, catheters and devices: The right internal jugular venous catheter tip is in the upper SVC. Lungs: The pulmonary vasculature is normal. Right lower lung zone calcified pulmonary parenchymal granuloma. Coarse bilateral central pulmonary markings with mild architectural distortion. The lungs are otherwise peripherally clear bilaterally. Pleural space: No pleural effusion. No pneumothorax. Heart/Mediastinum: Mediastinum: Stable. The heart is normal in size and contour. Vasculature: Moderate aortic arch atherosclerotic calcification without ectasia. Mild tortuosity of the descending thoracic aorta. A dual lead left subclavian permanent pacemaker is present. The right atrial and right ventricular leads appear to be in good position. Bones/joints: Stable. XR/XR chest 1V portable [id number] IMPRESSION: 1. Cardiac pacemaker placement as above. No evidence of complication. 2. No acute cardiopulmonary abnormality identified.
[2019-09-30] MEDS: lisinopril 20 mg Tablet PO ×2 (09:55→17:22)
[2019-09-30] MEDS: aspirin 325 mg Tablet PO (09:55)
[2019-09-30] MEDS: amlodipine 5 mg Tablet PO (11:00)
--- NOTE | 2019-09-30 12:46 | PC.RESP ---
PATIENT DOES NOT HAVE A QUALIFYING HX OF LUNG DISEASE AND DOES NOT QUALIFY FOR PULMONARY REHAB AT THIS TIME.
[2019-09-30] MEDS: ceFAZolin 1,000 MG in sodium chloride 0.9% (plus) 50 ML 100 MG IV ×2 (14:02→23:20)
[2019-09-30] MEDS: atorvastatin 40 mg Tablet 20 MG PO (17:22)
--- NOTE | 2019-09-30 18:35 | P.PN_ITS ---
Subjective Subjective: Interval history: Status post permanent pacemaker placement. Feeling much better and improved. Vitals/I&O/Wt Last Vital Signs Temp 98.3 F 09/28/19 19:24 Pulse 75 09/30/19 18:00 Resp 19 H 09/30/19 18:00 BP 112/91 09/30/19 18:00 Pulse Ox 93 09/30/19 16:00 09/30/19 09/30/19 09/30/19 06:59 14:59 22:59 Intake Total 570 / 570 240 / 810 Output Total 750 / 2300 610 / 610 200 / 810 Balance -750 / -525 -40 / -40 40 / 0 Physical Exam Narrative: EXAM NARRATIVE: GENERAL: Patient is alert, awake and oriented x3. NECK: No jugular vein distension. HEENT: No cyanosis. No icterus. No pallor. HEART: Regular S1 and S2. No murmur, rub or gallop. LUNGS: Clear to auscultate bilaterally. ABDOMEN: Soft, nontender and nondistended. Positive bowel sounds. No guarding, rebound or tenderness. CENTRAL NERVOUS SYSTEM: Grossly nonfocal. EXTREMITIES: Lower extremities without edema bilaterally. Const: COMMON NORMALS: alert Resp: COMMON NORMALS: clear to auscultation bilaterally AUSCULTATION: clear to auscultation bilaterally Neuro: SENSORIUM/ORIENTATION: Yes alert Data : 09/29/19 03:50 09/29/19 03:50 A&P Assessment and plan (1) Third degree AV block: Status post dual-chamber pacemaker placement. Currently doing fine from a cardiovascular perspective. We will watch him overnight post procedure hopefully he will be discharged tomorrow. I will move him out of the unit Status: Acute (2) Hypertension: Well-controlled continue medicine Status: Acute Qualifiers: Hypertension type: essential hypertension Qualified Code(s): I10 - Essential (primary) hypertension Attestations Medical Necessity Statement*: Post permanent pacemaker placement patient required to stay overnight for postprocedure care. Coding Level of Care Code Established Pt Acute Director Financial Planning for [facility] Patient Type Established Exam Expanded Problem Focused Medical Decision Making Moderate Complexity Diagnoses Third degree AV block I44.2 Hypertension I10 Hypertension type: essential hypertension
[2019-09-30] MEDS: sodium chloride 0.9% 1,000 ML 100 ML IV (21:27)
--- NOTE | 2019-09-30 22:32 | PC.NURSE ---
Dr. Park notified that patient does not have any VTE ordered. Physician stated patient is low risk so no VTE is required. No further orders at this time.
[2019-10-01 00:11] VITALS: BP 167/96; PULSE 84; RESP 19; TEMP 37.4; O2SAT 96
[2019-10-01 01:47] VITALS: PULSE 101; O2SAT 87
[2019-10-01 04:00] VITALS: BP 167/93; PULSE 64; RESP 22; TEMP 37.2; O2SAT 97
[2019-10-01] MEDS: ceFAZolin 1,000 MG in sodium chloride 0.9% (plus) 50 ML 100 MG IV (06:02)
[2019-10-01 07:44] VITALS: BP 120/86; PULSE 79; RESP 20; TEMP 36.9; O2SAT 96
--- NOTE | 2019-10-01 08:23 | PC.SOCIAL ---
IMM Update Pg. 2 of IMM given and explained to patient who verbalized understanding. Initialed, dated, and timed and placed in chart.
[2019-10-01] MEDS: mupirocin oint 22 gm 1 APPLIC NASAL (09:19)
[2019-10-01] MEDS: lisinopril 20 mg Tablet PO (09:19)
[2019-10-01] MEDS: aspirin 325 mg Tablet PO (09:19)
[2019-10-01] MEDS: amlodipine 5 mg Tablet PO (09:19)
--- NOTE | 2019-10-01 09:32 | P.DS_ITS ---
Discharge Providers Date of Admission: 09/28/19 17:41 Date of Discharge: October 01, 2019 Attending Provider at Admission: Bethel Park MD Attending Provider at Discharge: Bethel Park MD Primary Care Provider: Oscar Miramontes Diagnoses at Discharge Discharge Diagnosis (1) Third degree AV block: Status: Acute (2) Hypertension: Status: Acute Qualifiers: Hypertension type: essential hypertension Qualified Code(s): I10 - Essential (primary) hypertension Reason for Visit Reason for Visit: Bradycardia Hospital Course Hospital Course: Mr. Harris was electively admitted by Dr. Park after presenting to the emergency department with increasing shortness of breath and market fatigue over the past 2 weeks prior to presentation. He was found to be in third-degree heart block with a heart rate in the upper 20s to low 30s. Temporary pacemaker was placed by Dr. Park and I was consulted for permanent pacemaker implantation. This was performed yesterday September 30, 2019 with placement of a dual-chamber pacemaker. Postoperatively, he has done well. Interrogation this morning reveals appropriate device functioning. Incision line is clean and dry. Minimal swelling. Minimal discomfort. He will be discharged to home today in stable condition. He will be scheduled follow-up in heart care services next week. At his request, he did not wish for prescription for pain medication. Physical Exam Chest: COMMONS NORMALS: normal inspection of the chest (Pacemaker incision line is clean and dry and intact. Minimal swelling. No ecchymosis.) Discharge Data Data Completed and Pending: Completed Studies During Hospitalization Category Date Time Status SOUND PERSON request for service Routin e Exams 09/28/19 16:59 Completed XR chest 1V jeovany ble [id number] Routine Exams 09/30/19 09:22 Completed XR chest 1V jeovany ble [id number] Stat Exams 09/28/19 15:26 Completed Vitals: Last Vital Signs Temp 98.4 F 10/01/19 07:44 Pulse 79 10/01/19 07:44 Resp 20 H 10/01/19 07:44 BP 120/86 10/01/19 07:44 Pulse Ox 96 10/01/19 07:44 Discharge Plan Discharge Patient Disposition: Home Condition: Stable Prescriptions: Continued pravastatin 40 mg Tablet 40 mg PO QPM RF: 0 lisinopril 40 mg Tablet 20 mg PO BID RF: 0 aspirin 325 mg Tablet 325 mg PO DAILY RF: 0 Discharge Orders: Discharge Order (Routine); Ordered 10/01/19 Ordered By: Donal Bowden Referrals: [facility] [Provider Group] - 10/09/19 (Pacemaker clinic) Discharge Diet: Usual diet Discharge Activity: Limit activity as instructed Patient Instructions: Pacemaker (DC), Post Pacemaker - Jed Activity Restrictions/Additional Instructions: May remove bandage in 2 days May begin daily showers in 2 days No swimming or tub baths x 2 weeks No ointments on incision Report drainage, redness, heat, increased pain, or swelling to clinic Do not raise left hand above eye level for the next 5 days. Discharge Attestations Time Spent in Discharge Care*: less than 30 min Specific Discharge Activities: Specific discharge activities: educating patient, discussing with spring encaser/social workers/dc planners, documenting/other paperwork and evaluating patient/reviewing data Status at Discharge: Cognitive status at discharge: cognitively intact , Behavioral status at discharge: cooperative , Functional status at discharge: independent ambulation Overall status at discharge: patient is back to baseline Quality Metrics Clinical Quality Measures During this hospital stay, did patient experience: None Coding Level of Care Code Acute Account Strategist for [facility] Fwd Diagnoses Third degree AV block I44.2 Hypertension I10 Hypertension type: essential hypertension
[2019-10-01 09:58] VITALS: BP 120/86; PULSE 79; RESP 20; TEMP 36.9; O2SAT 96
--- NOTE | 2019-10-01 10:53 | PC.CHAP ---
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 [] Patient/Family/Request visit [] Outpatient visit [] Follow-up visit [] Physician referral [] Code/Alert [x] Routine visit [] Staff referral [] Actively dying [] Patient sleeping [] Family support [] [] Out of room [] Palliative care [] [] Receiving care in room [] Pre-surgical visit [] Trauma [] Long length of stay [] ICU visit [] Other: Relational/Emotional Strength [x] Patient feels connected with others/family/visitors/staff [] Distress [] Loneliness/isolation [] Abandonment Spirituality of Patient [x] Person of Cintia [x] Attends Lutheran of their Cintia [x] Believes in Prayer [x] Reads Bible or Adventist materials [] There are Spiritual issues to be addressed [employer] Interventions [x] Prayer [x] Active listening [x] Non-anxious presence [x] Spiritual/emotional support [] Crisis/trauma care [] Spiritual counseling [] Bereavement support [] Provided bereavement packet [] Provided Bible/devotional materials [] Provided toy/stuffed animal, coloring book to patient or family member [] Provided Communion [] Anointing/[place] [] Salvation [x] Completed spiritual assessment [] Other: Impact on Illness or Injury [] Angry [] Fearful [] Anxious [] Often cries [] Exhaustion [] Unable to work [] Unable to attend advent [] Unable to walk/stand [] Unable to read [] Unable to drive [] Unable to eat/drink [] Unable to sleep [] Unable to be with family [] Patient intubated [x] Other: Summary Patient is strong in his cintia and commitment to [place]. Time spent with patient 15 minutes
--- NOTE | 2019-10-01 12:21 | PC.NURSE ---
patient discharged home, Discharge instructions provided and explained to patient as well as his daughter with patients permission. IV discontinued cath intact min bleeding noted bandage applied. patient educated on s/s of infection patient verbalized understanding of instructions provided. Patient assisted to wheel chair accompanied to Private vehicle by staff patient alert and stable condition all belongings and discharge instructions in hand.
== END 2019-10-01 12:00 | disposition home or self-care (01) | DRG 244 ==
LOC: ER 15:30 → CCL 16:55 → ICU 17:42 → CSU 09-30 21:10
PROVIDERS: Emergency Medicine; Thoracic Surgery (Cardiothoracic Vascular Surgery); Admitting Provider Internal Medicine Cardiovascular Disease; PCP Internal Medicine; Visit Provider Internal Medicine Cardiovascular Disease
PROC: 0JH806Z Insertion of Pacemaker, Dual Chamber into Abdomen Subcutaneous Tissue and Fascia, Open Approach (ICD-10-PCS; principal; 2019-09-30 07:00)
DX: I44.2 Atrioventricular block, complete (principal); R00.1 Bradycardia, unspecified; I10 Essential (primary) hypertension; Z79.82 Long term (current) use of aspirin; E78.5 Hyperlipidemia, unspecified
CPT/HCPCS: 12345; 33210; 36415; 71045; 76000; 80053; 81001; 82550; 83735; 84439; 84443; 84484; 85025; 85610; 85730; 93005; 99284; C1769; C1779; C1786; C1894; C1898; J0690; J2250; J2370; J2704; J3010; J7030

== ENCOUNTER 2019-11-23 06:00 | Outpatient (RCR) | payer OTHER, SELFPAY | END 2019-12-02 23:59 | disposition home or self-care (01) | LOC: MPT 06:00 | PROVIDERS: PCP Internal Medicine; Referring Provider Family Medicine; Visit Provider Family Medicine | DX: R26.9 Unspecified abnormalities of gait and mobility (principal) | CPT/HCPCS: 97161; 97530 ==

== ENCOUNTER 2019-12-03 06:00 | Outpatient (RCR) | payer OTHER, SELFPAY | END 2020-01-02 23:59 | disposition home or self-care (01) | LOC: MPT 06:00 | PROVIDERS: PCP Internal Medicine; Referring Provider Family Medicine; Visit Provider Family Medicine | DX: R26.9 Unspecified abnormalities of gait and mobility (principal) | CPT/HCPCS: 97110; 97140; 97530 ==

== ENCOUNTER 2020-01-03 06:00 | Outpatient (RCR) | payer OTHER, SELFPAY | END 2020-02-01 23:59 | disposition home or self-care (01) | LOC: MPT 06:00 | PROVIDERS: PCP Internal Medicine; Referring Provider Family Medicine; Visit Provider Family Medicine | DX: R26.9 Unspecified abnormalities of gait and mobility (principal) | CPT/HCPCS: 97110; 97116; 97140; 97530 ==

== ENCOUNTER 2020-02-02 06:00 | Outpatient (RCR) | payer OTHER, SELFPAY | END 2020-03-03 23:59 | disposition home or self-care (01) | LOC: MPT 06:00 | PROVIDERS: PCP Internal Medicine; Referring Provider Family Medicine; Visit Provider Family Medicine | DX: R26.9 Unspecified abnormalities of gait and mobility (principal) | CPT/HCPCS: 97110; 97530 ==

== ENCOUNTER → 2021-11-27 15:11 | Outpatient (BNVA) | payer OTHER, SELFPAY | PROVIDERS: PCP Family Medicine; Visit Provider Internal Medicine Cardiovascular Disease | DX: I48.91 Unspecified atrial fibrillation (principal); Z95.0 Presence of cardiac pacemaker; I10 Essential (primary) hypertension; E78.5 Hyperlipidemia, unspecified; Z87.891 Personal history of nicotine dependence | CPT/HCPCS: 99214 ==

== ENCOUNTER → 2021-12-08 11:10 | Outpatient (BNVA) | payer OTHER, SELFPAY | PROVIDERS: PCP Family Medicine; Visit Provider Internal Medicine Cardiovascular Disease | DX: Z45.010 Encounter for checking and testing of cardiac pacemaker pulse generator [battery] (principal) | CPT/HCPCS: 93280 ==

== ENCOUNTER → 2022-07-10 15:50 | Outpatient (BNVA) | payer OTHER, SELFPAY | PROVIDERS: PCP Family Medicine; Visit Provider Dermatology | DX: L57.0 Actinic keratosis (principal); L40.8 Other psoriasis; Z85.828 Personal history of other malignant neoplasm of skin; Z87.891 Personal history of nicotine dependence | CPT/HCPCS: 17000; 17003; 99214 ==

== ENCOUNTER → 2022-08-27 14:02 | Outpatient (BNVA) | payer OTHER, SELFPAY | PROVIDERS: PCP Family Medicine; Visit Provider Internal Medicine Cardiovascular Disease | DX: I48.91 Unspecified atrial fibrillation (principal); Z95.0 Presence of cardiac pacemaker; I10 Essential (primary) hypertension; E78.5 Hyperlipidemia, unspecified; Z87.891 Personal history of nicotine dependence; Z79.82 Long term (current) use of aspirin | CPT/HCPCS: 99214 ==

== ENCOUNTER → 2022-08-29 08:05 | Outpatient (BNVA) | payer OTHER, SELFPAY | PROVIDERS: PCP Family Medicine; Visit Provider Internal Medicine Cardiovascular Disease | DX: Z45.010 Encounter for checking and testing of cardiac pacemaker pulse generator [battery] (principal) | CPT/HCPCS: 93296 ==

== ENCOUNTER → 2022-10-29 11:20 | Outpatient (BNVA) | payer MEDICARE, OTHER, SELFPAY | PROVIDERS: PCP Family Medicine; Visit Provider Dermatology | DX: D48.5 Neoplasm of uncertain behavior of skin (principal); L57.0 Actinic keratosis; L72.8 Other follicular cysts of the skin and subcutaneous tissue; L81.4 Other melanin hyperpigmentation; L82.1 Other seborrheic keratosis; Z85.828 Personal history of other malignant neoplasm of skin | CPT/HCPCS: 11102; 17000; 17003; 99213 ==

== ENCOUNTER → 2022-11-13 09:39 | Outpatient (BNVA) | payer MEDICARE, OTHER, SELFPAY | PROVIDERS: PCP Family Medicine; Visit Provider Dermatology | DX: C44.329 Squamous cell carcinoma of skin of other parts of face (principal); L57.0 Actinic keratosis; Z48.02 Encounter for removal of sutures; Z87.891 Personal history of nicotine dependence | CPT/HCPCS: 17000; 17003; 99213 ==

== ENCOUNTER 2022-11-26 13:59 | Emergency (ER) | payer OTHER, SELFPAY ==
[2022-11-26 14:03] VITALS: BP 133/82; PULSE 90; RESP 18; TEMP 36.8; O2SAT 97; BMI 30.5
--- NOTE | 2022-11-26 14:05 | ECG_ITS ---
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 Measurements Intervals [place] Rate: 88 P: 88 NM: 191 QRS: -68 QRSD: 214 T: 101 QT: 464 QTc: 564 Interpretive Statements ELECTRONIC VENTRICULAR PACEMAKER Compared to ECG 09/28/2019 21:44:36 Ventricular premature complex(es) no longer present Electronically Signed On 11-26-2022 16:15:10 CDT by Rivera Mills M.D. [email or web address]
--- NOTE | 2022-11-26 15:02 | W.ED.ARRPALP ---
HPI - Arrhythmia/Palpitations General: Chief Complaint: Arrhythmia/Palpitations Stated Complaint: pacemaker malfunction Time Seen by Provider: 11/26/22 14:08 Source: patient Mode of arrival: ambulatory History of Present Illness: 82-year-old male presents to the emergency room at the behest of [place] nurse. The [place] nurse at his dialysis today health check on him they reported that his heart rate was varying from 37-120. He does have a pacer which was placed for atrial fibrillation. He has not had any chest pain no syncope episodes no fever sweats chills he had a little bit of a headache yesterday which she describes as a sore area where he was treated for some skin cancers previously. MD complaint: palpitations and irregular heart beat Onset (ago): minute(s) Duration: intermittent and now resolved Severity: mild Context: occurred during rest Associated symptoms: Reports no associated symptoms; Deny nausea or vomiting Review of Systems Const: Denies: fever(s), chills, fatigue or malaise ENMT: Denies: throat pain, ear or mastoid pain, nasal discharge or nasal congestion Card: Reports: palpitations and irregular heart rhythm; Denies: chest pain, edema, dyspnea on exertion or orthopnea Resp: Denies: dyspnea, productive cough or non-productive cough GI: Denies: abdominal pain, nausea, vomiting, hematemesis, coffee ground emesis, diarrhea, constipation, bloating, hematochezia or melena : Denies: flank pain, dysuria, urinary frequency or urinary urgency Skin/Breast: Denies: rash or pruritus [facility] ED PFSH: Medical History History of nonmelanoma skin cancer Hyperlipidemia Hypertension Pacemaker Surgical History S/P cardiac pacemaker procedure Social History Smoking and tobacco status: former smoker Physical Exam Const: GENERAL APPEARANCE: cooperative and comfortable ORIENTATION/CONSCIOUSNESS: Yes awake, Yes oriented to person, Yes oriented to place and Yes oriented to time HENMT: COMMON NORMALS: normocephalic, atraumatic and hearing grossly normal bilaterally HEAD & SCALP: normocephalic and atraumatic Resp: COMMON NORMALS: normal respiratory effort, No retractions, No use of accessory muscles and clear to auscultation bilaterally AUSCULTATION: clear to auscultation bilaterally Cardio: COMMON NORMALS: regular rate, regular rhythm and No murmurs present (Cardio) RATE: regular rate RHYTHM: regular rhythm GI: COMMON NORMALS: Soft to palpation and No hepatosplenomegaly present AUSCULTATION: Yes normoactive bowel sounds PALPATION: Yes Soft to palpation, No Tenderness to palpation present (GI), No Guarding due to palpation present (GI) and Yes No hepatosplenomegaly present Extremity: COMMON NORMALS: normal to inspection, capillary refill normal, no clubbing, cyanosis or edema, no calf tenderness and no pedal edema Neuro: SENSORIUM/ORIENTATION: Yes oriented to person, Yes oriented to place and Yes oriented to time Skin: COMMON NORMALS: no rashes or lesions noted GENERAL SKIN EXAM: no rashes or lesions noted Course Vital Signs: Vital signs: Vital Signs Temperature 98.2 F 11/26/22 14:03 Pulse Rate 88 11/26/22 16:35 Respiratory Rate 27 H 11/26/22 16:35 Blood Pressure 120/77 11/26/22 16:35 Pulse Oximetry 98 11/26/22 16:35 Oxygen Delivery Me thod Room Air 11/26/22 14:03 MDM - Arrhythmia/Palpitations Medical Decision Making Pacemaker interrogated. Self terminating episodes of V. tach. We will discharge patient home no change at this time follow-up with cardiology return if has worsening symptoms. Concern with irregular rhythm no documentation of tachycardia is or a failure of pacer to capture. Medical Records I reviewed the patient's medical records. Lab Data I reviewed the patient's lab results. 11/26/22 14:58 11/26/22 14:58 Laboratory Results WBC 9.76 10^3/uL (3.29-11.43) 11/26/22 14:58 RBC 4.79 10^6/uL (3.85-5.65) 11/26/22 14:58 Hgb 15.00 g/dL (11.27-16.99) 11/26/22 14:58 Hct 46.2 % (37-53) 11/26/22 14:58 MCV 96.5 fl (82-101) 11/26/22 14:58 MCH 31.3 pg (27-33) 11/26/22 14:58 MCHC 32.5 g/dL (30-55) 11/26/22 14:58 RDW 12.5 % (12.1-15.1) 11/26/22 14:58 Plt Count 219 10^3/cmm (157-399) 11/26/22 14:58 MPV 11.1 fL (7.4-10.4) H 11/26/22 14:58 Neut % (Auto) 67.9 % 11/26/22 14:58 Lymph % (Auto) 20.7 % 11/26/22 14:58 [place] % (Auto) 8.5 % 11/26/22 14:58 Eos % (Auto) 2.0 % 11/26/22 14:58 Baso % (Auto) 0.7 % 11/26/22 14:58 Neut # (Auto) 6.62 10^3/uL (1.8-7.7) 11/26/22 14:58 Lymph # (Auto) 2.0 10^3/uL (0.8-4.8) 11/26/22 14:58 [place] # (Auto) 0.8 10^3/uL (0.2-0.9) 11/26/22 14:58 Eos # (Auto) 0.2 10^3/uL (0.0-0.8) 11/26/22 14:58 Baso # (Auto) 0.1 10^3/uL (0.0-0.1) 11/26/22 14:58 Nucleated RBC % (auto) 0 % 11/26/22 14:58 Nucleated RBCs # 0.0 /100WBC 11/26/22 14:58 Sodium 143 mmol/L (136-145) 11/26/22 14:58 Potassium 4.4 mmol/L (3.5-5.1) 11/26/22 14:58 Chloride 105 mmol/L (98-107) 11/26/22 14:58 Carbon Dioxide 29 mmol/L (22-29) 11/26/22 14:58 Anion Gap 13.4 (5-19) 11/26/22 14:58 BUN 9 mg/dL (8-23) 11/26/22 14:58 Creatinine 0.8 mg/dL (0.7-1.2) 11/26/22 14:58 GFR Calculation Not Reportable 11/26/22 14:58 Glucose 124 mg/dL (65-115) H 11/26/22 14:58 Calculated Osmolality 296 mOsm/kg (285-295) H 11/26/22 14:58 Calcium 9.4 mg/dL (8.5-10.5) 11/26/22 14:58 Total Bilirubin 0.7 mg/dL (0.15-1.2) 11/26/22 14:58 AST 15 U/L (0-40) 11/26/22 14:58 ALT 12 U/L (0-41) 11/26/22 14:58 Alkaline Phosphatase 73 U/L (40-130) 11/26/22 14:58 Total Protein 7.9 g/dL (6.6-8.7) 11/26/22 14:58 Albumin 4.5 g/dL (3.5-5.2) 11/26/22 14:58 Globulin 3.4 g/dL (1.3-4.6) 11/26/22 14:58 No radiology studies performed this visit Discharge Plan Discharge Patient Disposition: Home Clinical Impression: Heart palpitations, Pacemaker, Atrial fibrillation Condition: Stable Prescriptions: No Action pravastatin 40 mg tablet 40 mg PO DAILY aspirin 325 mg tablet 325 mg PO DAILY ICaps AREDS [id number] [id number] capsule 1 cap PO BID metoprolol succinate 25 mg tablet extended release 24 hr 25 mg PO DAILY Qty: 90 3RF senna 8.6 mg Tablet 8.6 mg PO DAILY PRN (Reason: Constipation) olopatadine 0.1 % Drops 1 drp OPHTHALMIC (EYE) BID Rx Instructions: separate doses by at least 6-8 hours mupirocin 2 % ointment 1 applic TOPICAL BID pyrithione zinc 1 % Shampoo 1 applic TOPICAL DAILY Rx Instructions: wet hair then apply , let stand 5 mins then rinse. Repeat. 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 Interrogation of your pacemaker did not show any significant abnormalities today. There was some nonsustained runs of tachycardia your exhibition organiser can address these. Coding Level of Care Code ED Stevedoring Superintendent for Michael Padilla
[2022-11-26 15:11] LABS: Basophils # 0.1 10^3/uL (0.0-0.1); Basophils % 0.7 %; Eosinophils # 0.2 10^3/uL (0.0-0.8); Hematocrit 46.2 % (37-53); Lymphocytes % 20.7 %; Mean Corpuscular HGB Conc 32.5 g/dL (30-55); Mean Corpuscular Hemoglobin 31.3 pg (27-33); Mean Corpuscular Volume 96.5 fl (82-101); Mean Platelet Volume 11.1 fL (7.4-10.4); Monocytes # 0.8 10^3/uL (0.2-0.9); Monocytes % 8.5 %; Neutrophils # 6.62 10^3/uL (1.8-7.7); Neutrophils % 67.9 %; Nucleated Red Blood Cells % 0 %; Platelet Count 219 10^3/cmm (157-399); Red Blood Count 4.79 10^6/uL (3.85-5.65); Red Cell Distribution Width 12.5 % (12.1-15.1); White Blood Count 9.76 10^3/uL (3.29-11.43)
[2022-11-26 15:33] LABS: Alanine Aminotransferase 12 U/L (0-41); Albumin Level 4.5 g/dL (3.5-5.2); Alkaline Phosphatase 73 U/L (40-130); Anion Gap 13.4 (5-19); Aspartate Amino Transferase 15 U/L (0-40); Blood Urea Nitrogen 9 mg/dL (8-23); Calcium 9.4 mg/dL (8.5-10.5); Carbon Dioxide 29 mmol/L (22-29); Chloride 105 mmol/L (98-107); Globulin 3.4 g/dL (1.3-4.6); Glucose 124 mg/dL (65-115); Osmolality Calculated 296 mOsm/kg (285-295); Potassium 4.4 mmol/L (3.5-5.1); Sodium 143 mmol/L (136-145); Total Bilirubin 0.7 mg/dL (0.15-1.2); Total Protein 7.9 g/dL (6.6-8.7)
[2022-11-26 16:35] VITALS: BP 120/77; PULSE 88; RESP 27; O2SAT 98
== END 2022-11-26 16:42 | disposition home or self-care (01) ==
PROVIDERS: Emergency Provider Family Medicine; PCP Family Medicine
DX: R00.2 Palpitations (principal); I48.91 Unspecified atrial fibrillation; Z95.0 Presence of cardiac pacemaker; Z79.82 Long term (current) use of aspirin; E78.5 Hyperlipidemia, unspecified; I10 Essential (primary) hypertension; Z87.891 Personal history of nicotine dependence
CPT/HCPCS: 36415; 80053; 85025; 93005; 99284

== ENCOUNTER → 2022-12-04 13:39 | Outpatient (BNVA) | payer OTHER, SELFPAY | PROVIDERS: PCP Family Medicine; Visit Provider Internal Medicine Cardiovascular Disease | DX: I48.91 Unspecified atrial fibrillation (principal); Z95.0 Presence of cardiac pacemaker; E78.5 Hyperlipidemia, unspecified; I10 Essential (primary) hypertension | CPT/HCPCS: 99214 ==

== ENCOUNTER → 2023-03-21 11:13 | Outpatient (BNVA) | payer OTHER, SELFPAY | PROVIDERS: PCP Family Medicine; Visit Provider Dermatology | DX: C44.329 Squamous cell carcinoma of skin of other parts of face (principal); L57.0 Actinic keratosis | CPT/HCPCS: 17000; 99213 ==

== ENCOUNTER 2023-04-11 09:30 | Outpatient (CLI) | payer OTHER, SELFPAY ==
--- NOTE | 2023-04-11 09:36 | CT_ITS ---
WS: [id number] CT HEAD TECHNIQUE: Noncontrast CT of the head obtained from the skullbase to the vertex. CLINICAL INFORMATION: ?TIA COMPARISON: None. DLP: 1142.[address] scans at [facility] use at least one of these dose optimization techniques: automated e xposure control; mA and/or kV adjustment per patient size (includes targeted exams where dose is matc hed to clinical indication); or iterative reconstruction. FINDINGS: No evidence of intracranial hemorrhage or mass effect. Ventricular system and basal cisterns are segundo nt. Mild small vessel changes with moderate parenchymal volume loss. No extra-axial fluid collections . No evidence of mass or mass effect. Intracranial vascular calcification. Paranasal sinuses and mastoid air cells are well aerated. .LEFT frontal scalp resection cavity with h istory of skin cancer. Erosion in the underlying calvarium. This erodes the outer table. Inner table appears intact. IMPRESSION: 1. No evidence of intracranial hemorrhage or mass effect. 2. Mild small vessel changes. Moderate parenchymal volume loss. 3. Intracranial vascular calcification. 4. LEFT frontal scalp resection cavity with erosive changes in the underlying calvarium outer table. 5. No acute intracranial findings.
== END 2023-04-11 09:31 | disposition home or self-care (01) ==
LOC: RAD 09:31
PROVIDERS: PCP Family Medicine; Visit Provider Nurse Practitioner Family
DX: R51.9 Headache, unspecified (principal); R44.8 Other symptoms and signs involving general sensations and perceptions; I67.89 Other cerebrovascular disease; I67.2 Cerebral atherosclerosis
CPT/HCPCS: 70450

== ENCOUNTER 2023-05-14 13:54 | Outpatient (CLI) | payer OTHER, SELFPAY ==
--- NOTE | 2023-05-14 14:02 | CT_ITS ---
WS: [id number] CT NECK TECHNIQUE: Contrast-enhanced CT of the neck with coronal and sagittal reformatted images. 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 DLP: 212.[address] scans at [facility] use at least one of these dose optimization techniques: automated e xposure control; mA and/or kV adjustment per patient size (includes targeted exams where dose is matc hed to clinical indication); or iterative reconstruction. FINDINGS: Heterogeneously enhancing irregular LEFT parotid lesions. Superior lesion in the parotid measures [place] roximately 2.1 x 1.8 cm with central necrosis. Additional irregular lesion along the inferior parotid and parotid tail measuring 1.6 x 2.1 cm with surrounding heterogeneous enhancement and evidence of e xtracapsular involvement. Inferior lesion is exophytic from the parotid abutting the sternocleidomast oid with loss of the normal fat plane. Associated surrounding enhancement suspicious for surrounding invasion. Associated enhancing suspicious LEFT parotid lymph node. Inferior periparotid enhancing lym ph node measures 11 mm in maximum dimension RIGHT parotid gland is normal. Normal submandibular glands. Normal posterior nasopharynx and paraphar yngeal fat. Otherwise normal size cervical lymph nodes bilaterally. Advancement spondylitic changes cervical spine with disc osteophyte complexes. Mild to moderate centr al canal stenosis C4-C5 C5-C6 and C6-C7. Paranasal sinuses and mastoid air cells are well aerated. No rmal posterior nasopharynx. Aortic calcification. Bilateral carotid bulb calcification. Cavernous car otid calcification. IMPRESSION: 1. Two peripherally enhancing irregular LEFT parotid lesions with evidence of extracapsular extensio n along the inferior LEFT parotid. This abuts the sternocleidomastoid with loss of the normal flat fa t plane. Findings suspicious for metastatic disease considering history of squamous cell carcinoma. C onsider further staging PET/CT. 2. Suspicious enhancing lymph node along the inferior margin the LEFT parotid gland measuring 11 mm. 3. Advanced spondylitic changes cervical spine with multilevel central canal stenosis
--- NOTE | 2023-05-14 14:02 | CT_ITS ---
WS: [id number] CT CHEST TECHNIQUE: Contrast enhanced CT of the chest with coronal and sagittal reformatted images. CLINICAL INFORMATION: LEFT ORTHODOX SCC COMPARISON: None. DLP: 456.[address] scans at [facility] use at least one of these dose optimization techniques: automated e xposure control; mA and/or kV adjustment per patient size (includes targeted exams where dose is matc hed to clinical indication); or iterative reconstruction. FINDINGS: Minimal chronic emphysematous changes. Cardiomegaly. Aortic calcification. Tortuous thoracic aorta. D ense coronary calcification. Enlarged RIGHT hilar lymph nodes measuring 1.5 cm. Partially calcified e nlarged subcarinal lymph nodes. Numerous normal sized peribronchial and anterior mediastinal lymph no sandra. No axillary lymphadenopathy. Adrenal glands are normal. Splenic granulomas. Small esophageal hiatal hernia. Splenic artery calcifi cation. Mild thoracic kyphosis. Small noncalcified nodules along the RIGHT middle lobe and adjacent fissure measuring 7 and 4 mm. A f ew tree-in-bud opacities in the RIGHT middle lobe likely inflammatory. Calcified granuloma RIGHT lowe r lobe. IMPRESSION: 1. Small noncalcified nodules RIGHT middle lobe along the adjacent fissure measuring 7 mm and 4 mm. 2. Enlarged RIGHT hilar lymph nodes measuring 1.5 cm. Partially calcified enlarged subcarinal lymph nodes. Numerous normal size anterior mediastinal and parabronchial lymph nodes. 3. Marked cardiomegaly. 4. Dense coronary calcification. 5. Tiny esophageal hiatal hernia. 6. No other acute findings.
[2023-05-14 15:26] LABS: Blood Urea Nitrogen 7 mg/dL (8-23)
[2023-05-14] MEDS: iohexol 350 mg/mL 500 mL Btl (per mL) IV ×2 (15:44→15:45)
== END 2023-05-14 13:55 | disposition home or self-care (01) ==
LOC: RAD 13:55
PROVIDERS: PCP Family Medicine; Visit Provider Otolaryngology
DX: C44.92 Squamous cell carcinoma of skin, unspecified (principal); R91.8 Other nonspecific abnormal finding of lung field; R59.0 Localized enlarged lymph nodes; I51.7 Cardiomegaly; I25.10 Atherosclerotic heart disease of native coronary artery without angina pectoris
CPT/HCPCS: 70491; 71260; 82565; 84520; Q9967